=== PATIENT | male | born 1950 | race Caucasian/White ===

== ENCOUNTER 2019-09-19 09:44 | Observation (INO) | payer MEDICARE, MEDICAID ==
[~2019-09-19] VITALS: Ht 198.1 cm; Wt 140.9 kg
[~2019-09-19 09:44] MED LIST: ALBU18HF INH; ALBU4TAB PO; CETI-237 PO; CLOP75TA PO; ENAL20TA PO; EPIN0.3S IM; FLUT1BLS INH; FURO20TA3 PO; ISOS30TA8 PO; METO50TA82 PO; MOME110A INH; MONT10TA9 PO; NITR0.6T4 SL; PNEU0.5D IM; POTA20PA31 PO; ROSU20TA2 PO; TAMS-11 PO; [UNRECOGNIZED DRUG - CODE] SL
[2019-09-19] MEDS ORDERED: CLOPIDOGREL 75 MG TABLET PO ONE (10:30)
[2019-09-19 10:31] VITALS: BP 132/97
[2019-09-19] MEDS ORDERED: NITROGLYCERIN 5 MG/ML, 10ML ONE ×2 (10:37→11:08)
[2019-09-19] MEDS ORDERED: FENTANYL PF 100 MCG/2ML ONE (11:07)
[2019-09-19] MEDS ORDERED: TICAGRELOR 90 MG TABLET ONE (11:07)
[2019-09-19] MEDS ORDERED: MIDAZOLAM 1 MG/ML, 5ML ONE ×2 (11:07→11:51)
[2019-09-19] MEDS ORDERED: BIVALIRUDIN 250 MG ONE ×2 (11:07→11:43)
[2019-09-19] MEDS ORDERED: HEPARIN 1,000 UNITS/ML, 10ML ONE (11:07)
[2019-09-19] MEDS ORDERED: LIDOCAINE-MPF 1%, 5ML ONE (11:07)
[2019-09-19] MEDS ORDERED: VERAPAMIL 2.5 MG/ML, 2ML ONE (11:07)
[2019-09-19] MEDS ORDERED: BIVALIRUDIN 250 MG in SODIUM CHLORIDE 0.9% 50 ML IV SCH (12:13)
[2019-09-19] MEDS ORDERED: SODIUM CHLORIDE 0.9% 1,000 ML IV SCH (12:13)
[2019-09-19] MEDS ORDERED: ALBUTEROL SULFATE 2.5 MG/3 ML HHN SCH (12:30)
[2019-09-19] MEDS ORDERED: NITROGLYCERIN 0.4 MG/SPRAY SL PRN (12:30)
[2019-09-19] MEDS ORDERED: EPINEPHRINE 1 MG/ML, 1ML SQ PRN (12:30)
[2019-09-19] MEDS ORDERED: ALBUTEROL 4 MG TABLET PO SCH (16:00)
[2019-09-19] MEDS ORDERED: FUROSEMIDE 20 MG TABLET PO SCH (21:00)
[2019-09-19] MEDS ORDERED: ATORVASTATIN 80 MG TABLET PO SCH (21:00)
[2019-09-19] MEDS ORDERED: METOPROLOL TARTRATE 50 MG TABLET PO SCH (21:00)
[2019-09-19] MEDS ORDERED: BUDESONIDE 0.5 MG/2 ML INHA HHN SCH (21:00)
[2019-09-19] MEDS ORDERED: TICAGRELOR 90 MG TABLET PO SCH (21:00)
[2019-09-19] MEDS ORDERED: ENALAPRIL 20MG TABLET PO SCH (21:00)
[2019-09-20] MEDS ORDERED: FLUTICASONE/VILANTEROL 200-25MCG/INH INH SCH (09:00)
[2019-09-20] MEDS ORDERED: POTASSIUM CHLORIDE 20 MEQ PACKET PO SCH (09:00)
[2019-09-20] MEDS ORDERED: ISOSORBIDE MONONITRATE ER 30 MG TABLET PO SCH (09:00)
[2019-09-20] MEDS ORDERED: ASPIRIN 81 MG TABLET EC PO SCH (09:00)
[2019-09-20] MEDS ORDERED: MONTELUKAST 10 MG TABLET PO SCH (09:00)
[2019-09-20] MEDS ORDERED: TAMSULOSIN 0.4 MG CAP.ER.24H PO SCH (09:00)
== END 2019-09-19 15:33 | disposition left against medical advice (07) ==
LOC: CACL 09:44 → ORIP 12:13 → 5SO 12:39
PROVIDERS: ADMIT Internal Medicine Cardiovascular Disease; ATTEND Internal Medicine Cardiovascular Disease
DX: I20.9 Angina pectoris, unspecified (principal); J45.909 Unspecified asthma, uncomplicated; E66.9 Obesity, unspecified; R09.02 Hypoxemia; Z79.899 Other long term (current) drug therapy; Z95.5 Presence of coronary angioplasty implant and graft
CPT/HCPCS: 93005; 93454; 99156; 99157; C1769; C1894; C9600; G0378; J0583; J1644; J2250; J3010; C1725; C1874; C1887; Q9967